=== PATIENT | male | born 1960 | race African-American/Black ===

== ENCOUNTER 2021-10-25 09:42 | Emergency (ER) | payer MEDICARE, MEDICAID ==
[~2021-10-25] VITALS: Ht 175.3 cm; Wt 77.0 kg
[2021-10-25 10:32] LABS: BASOPHILS % 0.8 % (0.0-2.0); EOSINOPHILS % 0.4 % (0.0-5.0); HEMATOCRIT. 43.2 % (42.0-52.0); HEMOGLOBIN. 14.1 g/dL (14.0-18.0); LYMPHOCYTES % 22.1 % (20.0-50.0); MEAN CORPUSCULAR VOLUME 88.4 fL (80.0-94.0); MEAN PLATELET VOLUME 9.9 fl (7.4-10.4); MONOCYTES % 11.4 % (2.0-8.0); NEUTROPHILS % 65.3 % (40.0-76.0); PLATELET 200 x1000/uL (130-400); RED BLOOD CELL COUNT 4.88 mill/uL (4.7-6.1); RED CELL DISTRIBUTION WIDTH 14.9 % (11.6-14.6)
[2021-10-25 10:42] LABS: CHLORIDE 112 mEq/L (98-107)
[2021-10-25 10:55] LABS: ETHANOL BLOOD < 10 mg/dL
[2021-10-25] MEDS ORDERED: ACETAMINOPHEN 325MG TABLET PO ONE (11:15)
[2021-10-25] MEDS ORDERED: LIDOCAINE 5% PATCH TOP ONE (11:15)
[2021-10-25] MEDS ORDERED: KETOROLAC 30MG/ML VIAL IV ONE (11:15)
[2021-10-25] MEDS ORDERED: METHOCARBAMOL 750MG TABLET PO SCH (11:15)
[2021-10-25 11:41] LABS: PROTHROMBIN TIME 11.2 sec (9.6-11.0)
[2021-10-25] MEDS ORDERED: TOPUD PO (12:38)
[2021-10-25] MEDS ORDERED: IBUP-2028 MT (12:38)
[2021-10-25] MEDS ORDERED: METH-653 MT (12:38)
[2021-10-25] MEDS ORDERED: LIDO1ADH23 TP (12:38)
[2021-10-25 13:29] VITALS: BP 146/89
== END 2021-10-25 13:31 | disposition home or self-care (01) ==
LOC: ER 09:57
DX: M54.12 Radiculopathy, cervical region (principal); R07.89 Other chest pain; I10 Essential (primary) hypertension; Z98.890 Other specified postprocedural states
CPT/HCPCS: 36415; 71045; 80053; 80320; 83690; 83880; 84484; 85025; 85610; 93005; 96374; 99285; J1885; G0480